=== PATIENT | male | born 1995 | race Native Hawaiian/Other Pacific Islander ===

== ENCOUNTER 2017-08-22 16:34 | Emergency (ER) | payer SELFPAY ==
[~2017-08-22] VITALS: Ht 177.8 cm; Wt 75.0 kg
[2017-08-22 16:51] VITALS: BP 143/63; PULSE 87; RESP 16; TEMP 99.6; O2SAT 99
[2017-08-22] MEDS ORDERED: IBUP1TAB7 PO (17:30)
[2017-08-22] MEDS ORDERED: MAGICPED SWISH-SWAL (17:30)
[2017-08-22] MEDS ORDERED: AMOX875T PO (17:30)
--- NOTE | 2017-08-22 17:31 | PD ---
HPI Chief Complaint: ENT Complaint Time Seen by Provider: 17:11 Travel History International Travel<30 days: No Contact w/Intl Traveler<30days: No Traveled to known affect area: No History of Present Illness HPI 22-year-old male presents to emergency department with complaint of sore throat and right ear pain 3 days. Pain is worse on the right side. Denies lump in throat, difficulty swallowing, unusual drooling. Reports painful swallowing. Denies nasal congestion, cough. Reports subjective fevers at home. Denies fever, vomiting. Reports headache. Reports history of sore throat like this in the past 3 times. has been taking ibuprofen for symptom management. Symptoms are moderate in severity. Aggravated with swallowing. Minimal relief with ibuprofen. No primary care provider. No known allergies. Denies significant past medical history. Has no other medical complaints. No other modifying factors or associated signs and symptoms. PFSH Social History Tobacco Use: No Allergies-Medications (Allergen,Severity, Reaction): Coded Allergies: No Known Allergies (Unverified , 08/22/17) Reported Meds & Prescriptions Reported Meds & Active Scripts Active Amoxicillin 875 Mg Tab 875 Mg PO BID 10 Days Ibuprofen 800 Mg Tab 800 Mg PO Q6HR PRN Magic Mouthwash Pediatric/Adult Liq (Lidocaine/Diphenhydr/Alum/Mg/Simeth) 60 Ml Susp 5 Ml SWISH-SWAL Q3HR PRN Each 5mL contains: Diphenydramine 4.5mg, Viscous Lidocaine 2% 10mg, Maalox Advanced Regular Strength 2.7ml Review of Systems Except as stated in HPI: all other systems reviewed are Neg Physical Exam Narrative GENERAL: Well-nourished, well-developed patient, in no acute distress SKIN: Warm and dry. No rash. HEAD: Atraumatic. Normocephalic. EYES: Pupils equal and round. No scleral icterus. No injection or drainage. PERRLA. ENT: Mucosa pink and dry. Pharynx with 3+ tonsils; with erythema, exudate, and edema. No uvular edema. No uvular, palatal, or tonsillar deviation. Airway patent. Voice is hoarse. EARS: Bilateral pinnae and external canals appear within normal limits. Bilateral tympanic membranes without erythema, dullness or perforation.. NECK: Trachea midline. Right Anterior cervical lymphadenopathy and tenderness on palpation. CARDIOVASCULAR: Regular rate RESPIRATORY: No accessory muscle use. GASTROINTESTINAL: Flat. MUSCULOSKELETAL: No obvious deformities. No clubbing. No cyanosis. No edema. NEUROLOGICAL: Awake and alert. Oriented 3. No obvious cranial nerve deficits. Motor grossly within normal limits. Normal speech. Moves all extremities. PSYCHIATRIC: Appropriate mood and affect; insight and judgment normal. Data Data Last Documented VS Vital Signs Date Time Temp Pulse Resp B/P (MAP) Pulse Ox O2 Delivery O2 Flow Rate FiO2 08/22/17 16:51 99.6 87 16 143/63 (89) 99 Orders Orders Amoxicillin (Trimox) (08/22/17 17:45) Ibuprofen (Motrin) (08/22/17 17:45) Group A Rapid Strep Screen (08/22/17 17:32) Ed Discharge Order (08/22/17 17:33) MDM Medical Decision Making Medical Screen Exam Complete: Yes Emergency Medical Condition: Yes Medical Record Reviewed: Yes Differential Diagnosis Otitis media, exudative pharyngitis, strep pharyngitis, viral pharyngitis, tonsillitis, less likely peritonsillar abscess Narrative Course 22-year-old male physical exam consistent with exudative pharyngitis. Patient has low-grade temperature of 99.6 in the ER. Reports subjective fevers at home. Denies vomiting. Amoxicillin, ibuprofen administered in the ER. Throat culture pending. Amoxicillin, ibuprofen, Magic mouthwash prescribed for home. Instructed patient to follow-up with ENT for concern of continued recurrence of sore throat. Instructed patient to follow up with primary care provider. Patient verbalizes understanding and agreement with treatment plan. Patient is medically cleared and stable for discharge. Discussed reasons to return to the emergency department. Patient agrees with treatment plan. The patients vital signs are stable and the patient is stable for outpatient follow-up and treatment. Patient discharged home, stable and in no acute distress. Diagnosis Primary Impression: Exudative pharyngitis Referrals: Ear / Nose / Throat Specialist Primary Care Physician Patient Instructions: General Instructions, Pharyngitis (ED) Additional Instructions: Take Antibiotics as prescribed and complete full course of antibiotics Throw away and change your toothbrush 24 hours after starting antibiotics Get plenty of sleep/rest Rest your voice Drink plenty of fluids to prevent dehydration Use warm saltwater gargles to soothe throat pain Use an air humidifier/turn off ceiling fans Use throat lozenges as needed for sore throat Use ibuprofen or acetaminophen as needed to relieve pain and fever Follow-up with your primary care provider within 2-4 days Return immediately to the emergency department with worsening of symptoms Med/Other Pt SpecificInfo: Prescription(s) given Scripts Amoxicillin (Amoxicillin) 875 Mg Tab 875 MG PO BID for Infection for 10 Days, #20 TAB 0 Refills Prov: Luli Calhoun 08/22/17 Ibuprofen (Ibuprofen) 800 Mg Tab 800 MG PO Q6HR Y for PAIN, #20 TAB 0 Refills Prov: Luli Calhoun 08/22/17 Drcirapxjjfcjlc-Wsdqborxa-Xlv-Alum-Simeth Liq (Magic Mouthwash Pediatric/Adult Liq) 60 Ml Susp 5 ML SWISH-SWAL Q3HR Y for SORE THROAT, #60 ML 0 Refills Each 5mL contains: Diphenydramine 4.5mg, Viscous Lidocaine 2% 10mg, Maalox Advanced Regular Strength 2.7ml Prov: Luli Calhoun 08/22/17 Disposition: 01 DISCHARGE HOME Condition: Stable Luli Calhoun August 22, 2017 17:31
[2017-08-22] MEDS ORDERED: IBUPROFEN 800 MG TAB PO ONE (17:45)
[2017-08-22] MEDS ORDERED: AMOXICILLIN 875 MG TAB PO ONE (17:45)
== END 2017-08-22 18:06 | disposition home or self-care (01) ==
LOC: NEPD 16:34
DX: J02.9 Acute pharyngitis, unspecified (principal)
CPT/HCPCS: 87880; 99283